=== PATIENT | female | born 1980 ===

== ENCOUNTER 2017-05-13 18:18 | Emergency (ER) | payer MEDICAID ==
[2017-05-13 18:23] VITALS: BP 141/94; PULSE 78; RESP 20; TEMP 98.8; O2SAT 98
--- NOTE | 2017-05-13 20:23 | C.PDOC ---
History Of Present Illness 36 yo female c/o left sided neck pain radiating to her shoulder x 5 days. Describes it as "stiff" and worse with head movement. Took motrin this morning without relief. No trauma. No change in sensation. Denies headache, fever, sore throat, chest pain, difficult breathing or swallowing. Time Seen by Provider: 05/13/17 18:58 Chief Complaint (Nursing): Upper Extremity Problem/Injury History Per: Patient History/Exam Limitations: no limitations Onset/Duration Of Symptoms: Days Current Symptoms Are (Timing): Still Present Quality: Tightness Past Medical History Vital Signs: Last Vital Signs Temp 98.8 F 05/13/17 18:19 Pulse 78 05/13/17 18:19 Resp 20 05/13/17 18:19 BP 141/94 H 05/13/17 18:19 Pulse Ox 98 05/13/17 20:24 Family History: States: Unknown Family Hx - Social History Hx Alcohol Use: Yes Hx Substance Use: No - Immunization History Hx Influenza Vaccination: Yes (12/2016) Hx Pneumococcal Vaccination: No Review Of Systems Except As Marked, All Systems Reviewed And Found Negative. Musculoskeletal: Positive for: Neck Pain Physical Exam - Physical Exam Appears: Well, Non-toxic, Other (Pt appears uncomfortable, holding her neck stiff and unable to rotate her head) Skin: Normal Color, Warm, Dry Head: Atraumatic, Normacephalic Eye(s): bilateral: Normal Inspection, PERRL, EOMI Nose: Normal Oral Mucosa: Moist Throat: Normal, No Erythema, No Exudate Neck: No Normal ROM (decreased ROM secondary to pain), No Midline Cervical Tenderness, Paracervical Tenderness ((+) left trapezius tenderness with mild spasm), Supple Lymphatic: Normal Exam Chest: Symmetrical Cardiovascular: Rhythm Regular Respiratory: Normal Breath Sounds Back: Normal Inspection Extremity: Normal ROM Neurological/Psych: Oriented x3, Normal Speech, Normal Sensation ED Course And Treatment O2 Sat by Pulse Oximetry: 98 - Other Rad Cervical XR X-Ray: Interpreted by Me, Viewed By Me Interpretation: no fx or dislocation Progress Note: Pt requests XR. Valium and Naproxen ordered. On re-evlauation, pt note she feels better. She does not want any additional pain medication. Pt is able to rotate her head and notes symptoms improvement. Instructed follow up with PMD in 1-2 days or return to ER if symtpoms persist or worsen. Disposition - Disposition Disposition: HOME/ ROUTINE Disposition Time: 20:19 Condition: STABLE Additional Instructions: Follow up with your primary medical doctor or clinic in 2-5 days for further evaluation. Take medications as prescribed. Return to the emergency department at any time if symptoms persist or worsen. Prescriptions: diaZEpam [Valium] 5 mg PO BID #10 tab Naproxen [Naprosyn] 1 tab PO BID PRN #20 tab PRN Reason: Pain Instructions: Cervical Strain (DC) Forms: [employer] (Tajik) - Clinical Impression Clinical Impression: Torticollis
--- NOTE | 2017-05-14 08:33 | RAD ---
PROCEDURE: Cervical Spine Radiographs. HISTORY: Pain. COMPARISON: None. FINDINGS: BONES: Alignment maintained. No fracture. Dens Intact. DISC SPACES: Normal. SOFT TISSUES: Normal. No prevertebral soft tissue swelling. OTHER FINDINGS: None. IMPRESSION: Normal cervical spine radiographs
== END 2017-05-13 20:28 | disposition home or self-care (01) ==
LOC: C.ER 18:18
DX: M43.6 Torticollis (principal)
CPT/HCPCS: 72052; 96372; 99283; J1885

== ENCOUNTER 2018-07-06 17:29 | Emergency (ER) | payer MEDICAID ==
[2018-07-06] MEDS ORDERED: Lidocaine 5% Patch TD STA (18:51)
[2018-07-06] MEDS ORDERED: Lidocaine 5% Patch TD ONE (18:55)
--- NOTE | 2018-07-06 19:09 | C.PDOC ---
History Of Present Illness 37 y/o female with hx back problems c/o left buttock pain that radiates down left leg. Time Seen by Provider: 07/06/18 18:36 Chief Complaint (Nursing): Hip Pain History Per: Patient History/Exam Limitations: no limitations Current Symptoms Are (Timing): Still Present Past Medical History Reviewed: Historical Data, Nursing Documentation, Vital Signs Vital Signs: Last Vital Signs Temp 97.8 F 07/06/18 17:33 Pulse 98 H 07/06/18 17:33 Resp 18 07/06/18 17:33 BP 145/86 07/06/18 17:33 Pulse Ox 97 07/06/18 17:33 - Medical History PMH: No Chronic Diseases Surgical History: No Surg Hx Family History: States: Unknown Family Hx - Social History Hx Alcohol Use: Yes Hx Substance Use: No - Immunization History Hx Influenza Vaccination: Yes (12/2016) Hx Pneumococcal Vaccination: No Review Of Systems Musculoskeletal: Positive for: Other (buttock pain, radiating down leg ) Physical Exam - Physical Exam Appears: Non-toxic, No Acute Distress Skin: Normal Color, Warm, Dry Head: Atraumatic, Normacephalic Gastrointestinal/Abdominal: Bowel Sounds (good ), Soft, No Tenderness Back: Other (left lumbar tenderness ) Extremity: Normal ROM, Capillary Refill (less than 2 seconds ), Other (left sciatic notch tenderness ) Neurological/Psych: Oriented x3, Normal Speech, Normal Cognition, Normal Motor, Normal Sensation Gait: Steady ED Course And Treatment O2 Sat by Pulse Oximetry: 97 (on RA ) Pulse Ox Interpretation: Normal Medical Decision Making Medical Decision Making: pt has rx for tylenol with codeine and flexeril at home, sees pain mgmt for p[rior problem, advised to f/u with pain mgmt and with Dr Francisco Disposition Counseled Patient/Family Regarding: Diagnosis, Need For Followup, Rx Given - Disposition Referrals: Renae Francisco MD [Staff Provider] - Disposition: HOME/ ROUTINE Disposition Time: 19:07 Condition: GOOD Additional Instructions: Remove patch in 12 hours. Continue to take Ibuprofen every 6 hours with food and muscle rellaxant every 8 hours- no driving or operating machinery when taking this medicine; if going to work, take at bedtime only. Instructions: Sciatica (DC), Sciatica Exercises Forms: General Discharge Instructions, [facility] (Yoruba), Work Excuse - Clinical Impression Clinical Impression: Sciatica
[2018-07-06 19:20] VITALS: BP 125/85; PULSE 84; RESP 20; TEMP 98
[2018-07-06 22:39] VITALS: O2SAT 97
== END 2018-07-06 19:31 | disposition home or self-care (01) ==
LOC: C.ER 17:29
DX: M54.30 Sciatica, unspecified side (principal)

== ENCOUNTER 2018-09-09 20:13 | Emergency (ER) | payer MEDICAID ==
[2018-09-09 20:21] VITALS: TEMP 98; O2SAT 100
--- NOTE | 2018-09-09 20:28 | C.PDOC ---
History Of Present Illness Patient presents to the ED c/o sudden onset severe headache associated with some nausea. Patient states she took Tylenol/codeine with no relief to the symptoms. Patient has history of headache but reports this feel worse. Patient denies fever, chills, dizziness, neck pain, visual changes, abdominal pain, weakness, numbness. Time Seen by Provider: 09/09/18 20:27 Chief Complaint (Nursing): Headache History Per: Patient History/Exam Limitations: no limitations Onset/Duration Of Symptoms: Sudden Onset Severity: Severe Pain Scale Rating Of: 7 Quality: "Pain" Recent travel outside of the [place] States: No Additional History Per: Patient Past Medical History Reviewed: Historical Data, Nursing Documentation, Vital Signs Vital Signs: Last Vital Signs Temp 98.0 F 09/09/18 20:17 Pulse 69 09/09/18 20:17 Resp 20 09/09/18 20:17 BP 131/77 09/09/18 20:17 Pulse Ox 100 09/09/18 20:17 - Medical History PMH: No Chronic Diseases Surgical History: No Surg Hx Family History: States: Unknown Family Hx - Social History Hx Alcohol Use: Yes Hx Substance Use: No - Immunization History Hx Influenza Vaccination: Yes (12/2016) Hx Pneumococcal Vaccination: No Review Of Systems Constitutional: Negative for: Fever, Chills Eyes: Negative for: Vision Change Cardiovascular: Negative for: Chest Pain Respiratory: Negative for: Shortness of Breath Gastrointestinal: Positive for: Nausea. Negative for: Vomiting, Abdominal Pain Musculoskeletal: Negative for: Neck Pain Skin: Negative for: Rash Neurological: Positive for: Headache. Negative for: Weakness, Numbness, Dizziness Physical Exam - Physical Exam Appears: Non-toxic, In Acute Distress Skin: Warm, Dry Head: Normacephalic Eye(s): bilateral: Normal Inspection, PERRL, EOMI Oral Mucosa: Moist Neck: No Midline Cervical Tenderness, Supple Chest: Symmetrical Cardiovascular: Rhythm Regular Respiratory: No Rales, No Rhonchi, No Wheezing Gastrointestinal/Abdominal: Soft, No Tenderness, No Guarding, No Rebound Extremity: Bilateral: Atraumatic, Normal Color And Temperature, Normal ROM Neurological/Psych: Oriented x3, Normal Speech, Normal Cognition, Other (non focal ) Gait: Steady ED Course And Treatment - Laboratory Results Result Diagrams: 09/09/18 20:58 09/09/18 20:58 O2 Sat by Pulse Oximetry: 100 (ON RA) Pulse Ox Interpretation: Normal - CT Scan/US Ct head Other Rad Studies (CT/US): Read By Radiologist, Radiology Report Reviewed CT/US Interpretation: EXAM: CT Head Without IV contrast. CLINICAL HISTORY: Headache. TECHNIQUE: Axial computed tomography images of the head/brain without intravenous contrast. COMPARISON: None provided. FINDINGS: BRAIN: No acute intraparenchymal hemorrhage. No mass lesion. No CT evidence for acute territorial infarct. No midline shift or extra-axial collections. VENTRICLES: No hydrocephalus. ORBITS: The orbits are unremarkable. SINUSES AND MASTOIDS: The paranasal sinuses and mastoid air cells are clear. BONES: No fracture. SOFT TISSUES: Unremarkable. IMPRESSION: No acute intracranial abnormality. . Electronically signed on Sep 09, 2018 10:10:10 PM EDT by: Jitendra Narayanan M.D., Certified by [facility], Diagnostic Radiology. Progress Note: Plan: - Labs. - IV fluids. - Zofran 4 mg IVP. - UA Reevaluation Time: 23:11 Reassessment Condition: Improved Medical Decision Making Medical Decision Making: Upon provider reevaluation patient is feeling better, is medically stable, and requires no further treatment in the ED at this time. Patient will be discharged home with Rx for zofran, naproxen . Counseling was provided and all questions were answered regarding diagnosis and need for follow up with dr peralta. There is agreement to discharge plan. Return if symptoms persist or worsen. Disposition Counseled Patient/Family Regarding: Studies Performed, Diagnosis, Need For Fol lowup, Rx Given - Disposition Referrals: Renae Peralta MD [Staff Provider] - Disposition: HOME/ ROUTINE Disposition Time: 20:28 Condition: FAIR Additional Instructions: Please return if symptoms recur Prescriptions: Naproxen [Naprosyn] 1 tab PO BID PRN #25 tab PRN Reason: Pain Ondansetron ODT [Zofran ODT] 1 odt PO BID PRN #6 odt PRN Reason: Nausea/Vomiting Instructions: Migraine Headache (DC) Forms: [employer] (Tanzanian) - Clinical Impression Clinical Impression: Migraine - Scribe Statement The provider has reviewed the documentation as recorded by the Scribe Jeovany Hughes All medical record entries made by the Scribe were at my direction and personally dictated by me. I have reviewed the chart and agree that the record accurately reflects my personal performance of the history, physical exam, medical decision making, and the department course for this patient. I have also personally directed, reviewed, and agree with the discharge instructions and disposition.
[2018-09-09] MEDS ORDERED: Sodium Chloride 0.9% 1,000 ML IV ONE (20:37)
[2018-09-09 21:02] LABS: BASO # 0.1 K/uL (0.0-0.2); BASO % 0.6 % (0.0-2.0); EOS # 0.1 K/uL (0.0-0.7); EOS % 1.3 % (0.0-4.0); HEMOGLOBIN 12.5 g/dL (11.0-16.0); LYMPH # 2.4 K/uL (1.0-4.3); LYMPH % 26.4 % (20.0-40.0); MEAN CELL VOLUME 91.4 fL (81.0-99.0); MEAN CORPUSCULAR HEMOGLOBIN 30.8 pg (27.0-31.0); MEAN CORPUSCULAR HGB CONC 33.7 g/dL (33.0-37.0); MEAN PLATELET VOLUME 8.8 fL (7.2-11.7); MONO # 0.7 K/uL (0.0-0.8); MONO % 7.2 % (0.0-10.0); NEUT # 5.8 K/uL (1.8-7.0); NEUT % 64.5 % (50.0-75.0); RBC 4.08 Mil/uL (3.80-5.20); RED CELL DISTRIBUTION WIDTH 13.1 % (11.5-14.5); WHITE BLOOD COUNT 9.1 K/uL (4.8-10.8)
[2018-09-09 21:09] LABS: SQUAMOUS EPITHIAL 6 /hpf (0-5); URINE BILIRUBIN NEGATIVE (NEGATIVE); URINE BLOOD NEGATIVE (NEGATIVE); URINE CLARITY Hazy (Clear); URINE COLOR Yellow (YELLOW); URINE GLUCOSE (UA) 1+ mg/dL (Normal); URINE LEUKOCYTE ESTERASE NEG Leu/uL (Negative); URINE PROTEIN NEGATIVE (NEGATIVE); URINE UROBILINOGEN NORMAL mg/dL (0.2-1.0)
[2018-09-09 21:16] LABS: ALB/GLOB RATIO 1.4 (1.0-2.1); ALBUMIN 4.6 g/dL (3.5-5.0); ALT/SGPT 35 U/L (9-52); AST/SGOT 30 U/L (14-36); BLOOD UREA NITROGEN 8 mg/dL (7-17); CALCIUM 9.4 mg/dl (8.6-10.4); GFR NON-AFRICAN AMERICAN > 60
[2018-09-09 23:35] VITALS: BP 105/72; PULSE 74; RESP 16
--- NOTE | 2018-09-10 06:39 | CT ---
Date of service: 09/09/2018 PROCEDURE: CT HEAD WITHOUT CONTRAST. HISTORY: headache COMPARISON: None available. TECHNIQUE: Axial computed tomography images were obtained through the head/brain without intravenous contrast. Radiation dose: Total exam DLP = 1011.4 mGy-cm. This CT exam was performed using one or more of the following dose reduction techniques: Automated exposure control, adjustment of the mA and/or kV according to patient size, and/or use of iterative reconstruction technique. FINDINGS: HEMORRHAGE: No intracranial hemorrhage. BRAIN: No mass effect or edema. Punctate hypodensities in the left basal ganglia and left external capsule may represent prominent perivascular spaces versus punctate lacunar infarcts. VENTRICLES: Unremarkable. No hydrocephalus. CALVARIUM: Unremarkable. PARANASAL SINUSES: Unremarkable as visualized. No significant inflammatory changes. MASTOID AIR CELLS: Unremarkable as visualized. No inflammatory changes. OTHER FINDINGS: Streak artifact from metal earrings limits evaluation. IMPRESSION: No acute intracranial abnormality. Punctate hypodensities in the left basal ganglia and left external capsule may represent prominent perivascular spaces versus punctate lacunar infarcts. If symptoms persists, consider correlation with MRI. A preliminary report was generated at 10:10 p.m. on 09/09/[address] Jitendra Narayanan from [employer].
== END 2018-09-09 23:38 | disposition home or self-care (01) ==
LOC: C.ER 20:13
DX: G43.909 Migraine, unspecified, not intractable, without status migrainosus (principal)
CPT/HCPCS: 70450; 80053; 81001; 82948; 84703; 85025; 96361; 96374; 99284; J1885; J7030